=== PATIENT | male | born 1940 | race Caucasian/White ===

== ENCOUNTER 2022-04-30 16:32 | Observation (INO) ==
[2022-04-30 17:23] LABS: ABS Lymphocytes 0.3 10^3/ul (1.0-4.8); ABS Monocytes 1.2 10^3/ul (0-0.8); ABS Neutrophils 19.2 10^3/ul (1.5-7.7); Hematocrit 44 % (42-52); Hemoglobin 15.1 g/dL (14.0-18.0); Lymphocyte % 1.4 %; Mean Corpuscular HGB Conc 34 g/dL (31-36); Mean Corpuscular Hemoglobin 29 pg (27-31); Mean Corpuscular Volume 84 fL (80-94); Mean Platelet Volume 7.7 fL (7.4-10.4); Nucleated Red Blood Cells % 0.1; Platelet Count 185 10^3/uL (150-450); Red Blood Count 5.26 10^6 /uL (4.18-5.48); Red Cell Distribution Width 13 % (10-15); White Blood Count 20.8 10^3/uL (3.5-10.8)
[2022-04-30 17:34] LABS: Activated Partial Thrombo Time 29.8 seconds (26.0-38.0); INR 1.2 (0.88-1.18)
[2022-04-30 17:58] LABS: Albumin 3.7 g/dL (3.2-5.2); Albumin/Globulin Ratio 1.6 (1-3); C Reactive Protein 22.77 mg/L (<8.01); Calcium 8.7 mg/dL (8.6-10.3); Creatinine, Serum 1.03 mg/dL (0.67-1.17); Globulin 2.3 g/dL (2-4); Potassium 3.5 mmol/L (3.5-5.0); eGFR CKD-EPI 72.1 (>60)
[2022-04-30 18:54] LABS: High Sensitivity Troponin 1 Hr 8 pg/mL (<20)
[2022-04-30 19:52] LABS: Urine Appearance Clear; Urine Bilirubin Negative (Negative); Urine Blood Negative (Negative); Urine Color Amber; Urine Glucose Negative (Negative); Urine Ketones Negative (Negative); Urine Nitrite Negative (Negative); Urine Protein 1+(30 mg/dL) (Negative); Urine Specific Gravity 1.024 (1.002-1.030); Urine Urobilinogen Negative (Negative)
[2022-04-30 19:57] LABS: Urine Bacteria Absent (Absent); Urine Red Blood Cell Trace(0-2/hpf) (Absent); Urine White Blood Cell 2+(11-20/hpf) (Absent)
[2022-04-30] MEDS ORDERED: Iodixanol (CONTRAST) 320 MG/ML 100 ML SDV IV ONE (20:11)
[2022-04-30] MEDS ORDERED: metroNIDAZOLE IV 500 MG/100ML 500 MG/100 ML BAG IVPB ONE (21:39)
[2022-04-30] MEDS ORDERED: Ondansetron 4 mg VIAL 2 MG/ML 2 ml VIAL IV PRN (22:41)
[2022-04-30] MEDS ORDERED: Piperacillin/Tazobac ADVAN 3.375 GM in NS 0.9% 100 ml BAG 100 ML IV ONE (23:35)
[2022-04-30] MEDS ORDERED: Zosyn per Pharmacy NOTE FOLLOW UP SCH (23:45)
[2022-05-01] MEDS: Lactated Ringers 1000 ml BAG 1,000 ML IV SCH ×2 (00:29→06:52)
[2022-05-01] MEDS ORDERED: KCL 20 MEQ/100 ML IVPREMIX 20 MEQ/100 ML BAG IV ONE (02:07)
[2022-05-01 02:27] LABS: Magnesium 1.6 mg/dL (1.9-2.7)
[2022-05-01] MEDS ORDERED: Magnesium Sulfate IV 3 GM in NS 0.9% 100 ml BAG 100 ML IVPB ONE (02:37)
[2022-05-01] MEDS: ZOSYN 3.375 GM Q8H per EXTENDED INFUSION IV SCH ×3 (05:08→21:02)
[2022-05-01 05:57] LABS: ABS Lymphocytes 0.5 10^3/ul (1.0-4.8); ABS Monocytes 0.9 10^3/ul (0-0.8); ABS Neutrophils 18.9 10^3/ul (1.5-7.7); Eosinophil % 0.1 %; Hematocrit 39 % (42-52); Hemoglobin 13.6 g/dL (14.0-18.0); Lymphocyte % 2.5 %; Mean Corpuscular HGB Conc 35 g/dL (31-36); Mean Corpuscular Hemoglobin 29 pg (27-31); Mean Corpuscular Volume 84 fL (80-94); Mean Platelet Volume 7.8 fL (7.4-10.4); Platelet Count 157 10^3/uL (150-450); Red Blood Count 4.62 10^6 /uL (4.18-5.48); Red Cell Distribution Width 14 % (10-15); White Blood Count 20.4 10^3/uL (3.5-10.8)
[2022-05-01 06:28] LABS: Albumin 3.2 g/dL (3.2-5.2); Albumin/Globulin Ratio 1.4 (1-3); Calcium 8.2 mg/dL (8.6-10.3); Creatinine, Serum 1.1 mg/dL (0.67-1.17); Globulin 2.3 g/dL (2-4); Potassium 3.8 mmol/L (3.5-5.0); Total Bilirubin 1.5 mg/dL (0.2-1.0); Total Protein 5.5 g/dL (6.4-8.9); eGFR CKD-EPI 66.6 (>60)
[2022-05-01 08:11] LABS: Magnesium 2.6 mg/dL (1.9-2.7)
[2022-05-01] MEDS: BRIMONIDINE BOTH EYES SCH ×2 (08:17→21:03)
[2022-05-01] MEDS: OPTH BOTH EYES SCH ×2 (08:17→21:03)
[2022-05-01] MEDS: TIMOLOL BOTH EYES SCH ×2 (08:17→21:03)
[2022-05-01] MEDS ORDERED: Bupivacaine 0.25% SDV 30 ML ONE (13:34)
[2022-05-01] MEDS ORDERED: Acetaminophen IV 1 GM/100ML 1,000 MG/100 ML BAG IV ONE (13:54)
[2022-05-01] MEDS ORDERED: Rocuronium 50 mg VIAL 10 mg/ml 5 ml VIAL (50 mg) ONE (14:05)
[2022-05-01] MEDS ORDERED: Bupivacaine 0.5% W/EPI SDV 10 ML VIAL INJ ONE (14:16)
[2022-05-01] MEDS ORDERED: Ondansetron 4 mg VIAL 2 MG/ML 2 ml VIAL ONE (14:20)
[2022-05-01] MEDS ORDERED: Dexamethasone IV 4 MG/ML VIAL 1 ml VIAL ONE (14:20)
[2022-05-01] MEDS ORDERED: Phenylephrine 40 mcg/mL 10mL (400mcg) SYRINGE ONE (14:26)
[2022-05-01] MEDS ORDERED: fentaNYL 100 mcg/2 ml 50 MCG/ML VIAL ONE (15:10)
[2022-05-01] MEDS ORDERED: fentaNYL 100 mcg/2 ml 50 MCG/ML VIAL IV PRN (15:52)
[2022-05-01] MEDS ORDERED: HYDROcodone/ACETAMIN 5/325 mg TAB PO PRN (15:52)
[2022-05-01] MEDS ORDERED: Naloxone 0.4 mg VIAL 0.4 mg/ml 1 ml VIAL IV PRN (15:52)
[2022-05-01] MEDS ORDERED: Metoclopramide 5 MG/ML VIAL (10 mg) IV PRN (15:52)
[2022-05-01] MEDS ORDERED: Ondansetron 4 mg VIAL 2 MG/ML 2 ml VIAL IV PRN (15:52)
[2022-05-01] MEDS ORDERED: HYDROmorphone 0.5 MG/0.5 ML SYRINGE IV SLOW PU PRN (15:56)
[2022-05-01] MEDS: NS 0.9% 1000 ml BAG 1,000 ML IV SCH (17:37)
[2022-05-01] MEDS ORDERED: Latanoprost 0.005% 2.5 ml BTL BOTH EYES SCH (21:00)
[2022-05-02] MEDS: NS 0.9% 1000 ml BAG 1,000 ML IV SCH (04:19)
[2022-05-02] MEDS: ZOSYN 3.375 GM Q8H per EXTENDED INFUSION IV SCH (04:20)
[2022-05-02 06:22] LABS: ABS Lymphocytes 0.4 10^3/ul (1.0-4.8); ABS Monocytes 0.7 10^3/ul (0-0.8); ABS Neutrophils 16.7 10^3/ul (1.5-7.7); Hematocrit 35 % (42-52); Hemoglobin 11.9 g/dL (14.0-18.0); Lymphocyte % 2.2 %; Mean Corpuscular HGB Conc 34 g/dL (31-36); Mean Corpuscular Hemoglobin 29 pg (27-31); Mean Corpuscular Volume 85 fL (80-94); Mean Platelet Volume 8.2 fL (7.4-10.4); Platelet Count 133 10^3/uL (150-450); Red Blood Count 4.09 10^6 /uL (4.18-5.48); Red Cell Distribution Width 14 % (10-15); White Blood Count 17.8 10^3/uL (3.5-10.8)
[2022-05-02 06:34] LABS: Calcium 7.9 mg/dL (8.6-10.3); Creatinine, Serum 1.05 mg/dL (0.67-1.17); Magnesium 2.2 mg/dL (1.9-2.7); eGFR CKD-EPI 70.4 (>60)
[2022-05-02] MEDS ORDERED: Brimonidine/Timolol 0.2%/0.5% OPTH(NF) SOL 5 ML BOTH EYES SCH (09:00)
[2022-05-02 11:48] VITALS: BP 137/88
[2022-05-02] MEDS ORDERED: Amoxicillin/Clavul 875/125 TAB (Augmentin 875 tab) PO SCH (12:30)
== END 2022-05-02 12:49 | disposition home or self-care (01) ==
LOC: EDHOLD 16:32 → ED 16:32 → SUATTDRO 22:36 → MED 23:40
PROVIDERS: ADMIT Hospitalist; ATTEND Internal Medicine